=== PATIENT | female | born 1935 ===

== ENCOUNTER 2016-11-23 21:52 | Emergency (ER) | payer MEDICARE, BC, OTHER ==
[2016-11-23 22:17] VITALS: RESP 24; TEMP 96.3
[2016-11-23] MEDS ORDERED: VALSARTAN 80 MG TAB PO SCH (22:30)
[2016-11-23] MEDS ORDERED: AMLODIPINE 5 MG TAB ONE (22:35)
[2016-11-23] MEDS ORDERED: LOSARTAN POTASSIUM 50 MG TAB ONE (22:41)
[2016-11-23] MEDS: AMLODIPINE 5 MG TAB PO SCH (22:45)
[2016-11-23] MEDS: LOSARTAN POTASSIUM 50 MG TAB PO ONE (22:45)
[2016-11-24 00:21] VITALS: BP 112/46; PULSE 55; O2SAT 96
== END 2016-11-24 00:13 | disposition home or self-care (01) | DRG 305 ==
LOC: ED 21:52
DX: I10 Essential (primary) hypertension (principal); F41.9 Anxiety disorder, unspecified
CPT/HCPCS: 99283

== ENCOUNTER 2017-03-30 18:28 | Emergency (ER) | payer MEDICARE, BC, OTHER ==
[2017-03-30 18:55] VITALS: O2SAT 98
[2017-03-30 19:06] VITALS: PULSE 79; RESP 20; TEMP 97.5
[2017-03-30 19:54] VITALS: BP 156/61
== END 2017-03-30 19:52 | disposition home or self-care (01) | DRG 305 ==
LOC: ED 18:28
DX: I10 Essential (primary) hypertension (principal); K64.4 Residual hemorrhoidal skin tags
CPT/HCPCS: 99282

== ENCOUNTER 2017-05-23 16:42 | Emergency (ER) | payer MEDICARE, BC, OTHER ==
[2017-05-23] MEDS ORDERED: ASPIRIN 325 MG TAB PO STA (16:45)
[2017-05-23] MEDS ORDERED: NITROGLYCERIN 0.4 MG TAB SL ONE (17:05)
[2017-05-23] MEDS ORDERED: ASPIRIN 81 MG CHEWABLE CTB ONE (17:05)
[2017-05-23 17:07] LABS: BASOPHILS % (AUTO) 1 % (0-3); EOSINOPHILS % (AUTO) 0 % (0-9); HEMATOCRIT 41 % (35-47); MEAN CORPUSCULAR HGB CONC 34.5 gm/dl (32.0-36.0); MEAN CORPUSCULAR VOLUME 88 fL (81-99); MONOCYTES % (AUTO) 5.6 % (0-12); NEUTROPHILS % (AUTO) 78.5 % (37-80)
[2017-05-23] MEDS: NITROGLYCERIN 0.4 MG TAB SL PRN ×2 (17:08→17:18)
[2017-05-23 17:28] LABS: ALT 26 IU/L (14-63); CALCIUM 8.5 mg/dl (8.5-10.1); GLOM FILT RATE 32 mL/min (>60); POTASSIUM 3.9 mMol/L (3.5-5.1); SODIUM 137 mMol/L (136-145)
[2017-05-23 17:38] VITALS: TEMP 98.7; O2SAT 97
[2017-05-23 18:00] LABS: APPEARANCE,URINE Clear; BILIRUBIN,URINE NEGATIVE (NEGATIVE); COLOR,URINE Light yellow; GLUCOSE, URINE (UA) NEGATIVE (NEGATIVE); KETONES,URINE NEGATIVE (NEGATIVE); LEUKOCYTE ESTERASE ,URINE TRACE (NEGATIVE); NITRATE,URINE NEGATIVE (NEGATIVE); OCCULT BLOOD,URINE NEGATIVE (NEG-TRACE); UROBILINOGEN,URINE 0.2 (0.2-1.0 EU)
[2017-05-23 18:10] LABS: RBC,URINE NEG (0-3AV/HPF); WBC,URINE 0-3 (0-5AV/HPF)
[2017-05-23] MEDS ORDERED: ALUMINUM/MAGNESIUM 30 ML SUS PO ONE (19:00)
[2017-05-23] MEDS ORDERED: LIDOCAINE HCL 2% (VISCOUS) 20 ML SOL MT ONE (19:00)
[2017-05-23] MEDS ORDERED: ALUMINUM/MAGNESIUM 30 ML SUS ONE (19:03)
[2017-05-23] MEDS ORDERED: LIDOCAINE HCL 2% (VISCOUS) 20 ML SOL ONE (19:04)
[2017-05-23 20:54] VITALS: BP 149/60; PULSE 77; RESP 17
== END 2017-05-23 21:04 | disposition home or self-care (01) | DRG 313 ==
LOC: ED 16:42
DX: R07.89 Other chest pain (principal); E11.9 Type 2 diabetes mellitus without complications; Z79.4 Long term (current) use of insulin
CPT/HCPCS: 36415; 71010; 74176; 80053; 81001; 82962; 84484; 85025; 93005; 99284

== ENCOUNTER 2017-07-01 07:41 | Day surgery (SDC) | payer MEDICARE, BC, OTHER ==
[2017-07-01] MEDS ORDERED: LIDOCAINE HCL 1% MPF SOL ONE (07:45)
[2017-07-01] MEDS ORDERED: PROPOFOL 500 MG/50 ML EMU IV ONE (07:45)
[2017-07-01 09:06] VITALS: BP 155/66; PULSE 64; RESP 20; O2SAT 98
== END 2017-07-01 09:20 | disposition home or self-care (01) | DRG 392 ==
LOC: SURG 07:41
PROVIDERS: ATTEND Surgery
DX: K21.9 Gastro-esophageal reflux disease without esophagitis (principal); E11.9 Type 2 diabetes mellitus without complications; Z79.4 Long term (current) use of insulin; K31.9 Disease of stomach and duodenum, unspecified
CPT/HCPCS: 82962; J2001; J2704

== ENCOUNTER 2018-06-06 00:01 | Emergency (ER) | payer MEDICARE, BC, OTHER ==
[2018-06-06 00:10] VITALS: RESP 18; TEMP 97.1
[2018-06-06] MEDS ORDERED: ONDANSETRON HCL 4 MG/2 ML SOL IM ONE (00:28)
[2018-06-06] MEDS ORDERED: HYDROMORPHONE HCL 2 MG/ML SOL IM ONE (00:29)
[2018-06-06] MEDS ORDERED: ONDANSETRON HCL 4 MG/2 ML SOL ONE ×2 (00:33→01:35)
[2018-06-06] MEDS ORDERED: HYDROMORPHONE 1 MG/ML SYRINGE ONE (00:33)
[2018-06-06] MEDS ORDERED: ONDANSETRON HCL 4 MG/2 ML SOL IV ONE (01:20)
[2018-06-06] MEDS ORDERED: SODIUM CHLORIDE 0.9% 500 ML 500 ML IV ONE ×2 (01:20→03:08)
[2018-06-06] MEDS ORDERED: PROMETHAZINE HYDROCHLORIDE 25 MG/ML SOL IV ONE (02:30)
[2018-06-06] MEDS ORDERED: PROMETHAZINE HYDROCHLORIDE 25 MG/ML SOL ONE (02:31)
[2018-06-06 03:42] VITALS: BP 125/49; PULSE 77; O2SAT 92
== END 2018-06-06 03:30 | disposition home or self-care (01) | DRG 103 ==
LOC: ED 00:01
DX: R51 Headache (principal); E11.9 Type 2 diabetes mellitus without complications; I67.9 Cerebrovascular disease, unspecified
CPT/HCPCS: 70450; 96365; 96372; 96374; 96375; 99283; 99285; J2405; J2550; J1170

== ENCOUNTER 2018-06-07 15:56 | Emergency (ER) | payer MEDICARE, BC, OTHER ==
[2018-06-07 15:56] VITALS: O2SAT 92
== END 2018-06-07 16:10 | disposition left against medical advice (07) | DRG 951 ==
LOC: ED 15:56
DX: Z53.21 Procedure and treatment not carried out due to patient leaving prior to being seen by health care provider (principal)